=== PATIENT | male | born 1975 | race Caucasian/White ===

== ENCOUNTER 2016-12-03 10:37 | Emergency (ER) | payer MEDICAID ==
[2016-12-03 10:47] VITALS: RESP 18
--- NOTE | 2016-12-03 11:25 | EDPHY ---
H & P Smoking Status: Never smoked Time Seen by Provider: 12/03/16 10:49 HPI/ROS: CHIEF COMPLAINT: Left foot injury HISTORY OF PRESENT ILLNESS: 41-year-old male presents to the emergency department with injury to the left foot. Patient accidentally dropped a heavy weight on his left foot just prior to arrival. He was wearing sandals at the time. He injured his left 3rd and 4th toe. He denies any other injury or trauma. He is able to bear weight. He is unsure of his last tetanus shot. ROS: Denies numbness or tingling in his toes, pain in his left ankle or calf. ( Charlee Bray) Past Medical/Surgical History: Negative (Charlee Bray) Social History: Single (Charlee Bray) Physical Exam: On examination, left 3rd toe reveals an avulsion to the nail which is out of the nail bed. There is no active bleeding noted. There is laceration noted both to the medial and lateral aspect of his left 3rd toe. There is also a laceration to the posterior aspect of the left 3rd toe. No active bleeding noted. The wound does not extend into the D IP joint. Has pain with palpation over the left 4th toe over the distal phalanx. No rotational deformities noted. No laceration. Normal sensation to light touch with normal 2 point discrimination in the left 4th toe. He has slightly decreased sensation to light touch in the left 3rd toe. Strong dorsalis pedis pulse on the dorsal aspect of the left foot. (Charlee Bray) Constitutional: Initial Vital Signs Temperature (C) 36.6 C 12/03/16 10:40 Heart Rate 87 12/03/16 10:40 Respiratory Rate 18 12/03/16 10:40 Blood Pressure 141/86 H 12/03/16 10:40 O2 Sat (%) 95 12/03/16 10:40 O2 Delivery Mode Room Air Allergies/Adverse Reactions: No Known Allergies Allergy (Unverified 12/03/16 10:45) Home Medications: Medication Instructions Recorded Cephalexin [Keflex] 500 mg PO QID #28 cap 12/03/16 MDM/Departure - [facility] Imaging: I viewed and interpreted images myself - [facility] Imaging Results: Imaging Impressions Toe X-Ray 12/03/16 10:47 Impression: 1. Comminuted fractured tuft of the distal phalanx third toe. 2. Nondisplaced fracture at the tuft of the fourth distal phalanx. Findings discussed with Emergency Department physician, Dr. David Neff on December 03, 2016 at 1124 hours. Procedures: Laceration repair #1. Verbal consent was obtained from the patient. The 2 cm irregular laceration on the left 3rd toe was anesthetized using digital block using 1% lidocaine without epinephrine 0.5% bupivacaine without epinephrine. The wound was irrigated with saline, draped and explored to its base with a gloved finger. No tendon injury was identified. The wound was repaired with 4 0 Ethilon, 7 sutures. The wound repair was simple. The procedure was performed by myself. Laceration repair#2. Verbal consent was obtained from the patient. The wound size laceration on the location was anesthetized using digital block using 1% lidocaine without epinephrine 0.5% bupivacaine without epinephrine. The wound was irrigated with saline, draped and explored to its base with a gloved finger. There were no deep structures involved. No tendon injury was identified. The wound was repaired with 4 0 Ethilon, 5 sutures. The wound repair was simple. The procedure was performed by myself. (Charlee Bray) Medications Given: Discontinued Medications Cephalexin (Keflex 500 Mg Prepack#4) 1 btl TAKEHOME EDNOW ONE PRN Reason: Protocol Stop: 12/03/16 13:09 Last Admin: 12/03/16 13:25 Dose: 1 btl Diphtheria/Tetanus/Acell Pertussis (Boostrix) 0.5 ml IM .ONCE ONE Stop: 12/03/16 13:10 Last Admin: 12/03/16 13:35 Dose: 0.5 ml ED Course/Re-evaluation: 41-year-old male presents to the emergency department with left toe injury. X- rays reveal tuft fracture to the distal phalanx of the left 3rd toe and tuft fracture to the left 4th toe. The 3rd was open. I spoke with the on-call orthopedic surgeon, Dr. Rose, who agreed with antibiotics and they will see him in follow-up this week. This was discussed with the patient who verbalized understanding and agreed. The patient was started on Keflex in the emergency department. His tetanus shot was updated. The wound was repaired, see procedure note. (Charlee Bray) I did not see this patient while he was in the emergency department. However his care was discussed with the PA while the patient was in the department. I agree with treatment plan and management (David Neff) - Depart Disposition: Home, Routine, Self-Care Clinical Impression: Fracture of third toe, left, open, Fracture of fourth toe, left, closed Laceration of third toe, left Qualifiers: Encounter type: initial encounter Qualified Code(s): S91.115A - Laceration without foreign body of left lesser toe(s) without damage to nail, initial encounter Condition: Good Instructions: Care For Your Stitches (ED), Laceration (ED), Toe Fracture (ED), Acute Wounds (ED) Additional Instructions: Wound Care Follow-Up: Removal of sutures in 10-14 days. Suture removal is complimentary in uncomplicated cases. Infection or abnormal findings would require reevaluation by the MD. In that case, you may be billed. Keflex 500 mg 4 times daily for 1 week. You have an open fracture in her left 3rd toe an hour at risk for injured developing an infection despite as cleaning this out very well and starting on antibiotics right away. If you notice redness, swelling, increased pain, fever, purulent drainage, please return to the emergency department immediately. Postop shoe for comfort and support. Follow up with orthopedic surgeon this week to recheck. Ibuprofen 600 mg every 8 hours as needed for pain. Elevate your foot for comfort and to help reduce swelling. Prescriptions: Cephalexin [Keflex] 500 mg PO QID #28 cap Referrals: [facility] [Other] - As per Instructions
[2016-12-03] MEDS ORDERED: CEPHALEXIN 500MG PREPACK#4 BTL TAKEHOME ONE (13:08)
[2016-12-03] MEDS ORDERED: TDAP ADULT 0.5 ML INJ (BOOSTRIX) IM ONE (13:09)
[2016-12-03 14:38] VITALS: BP 130/80; PULSE 78; TEMP 98.4; O2SAT 98
== END 2016-12-03 14:37 | disposition home or self-care (01) ==
PROC: 0HQNXZZ Repair Left Foot Skin, External Approach (ICD-10-PCS; principal; 2016-12-03)
DX: S92.532B Displaced fracture of distal phalanx of left lesser toe(s), initial encounter for open fracture (principal); S92.532A Displaced fracture of distal phalanx of left lesser toe(s), initial encounter for closed fracture; S91.115A Laceration without foreign body of left lesser toe(s) without damage to nail, initial encounter; Z23 Encounter for immunization; W20.8XXA Other cause of strike by thrown, projected or falling object, initial encounter
CPT/HCPCS: L3260